=== PATIENT | male | born 1940 | race Caucasian/White ===

== ENCOUNTER 2016-11-11 19:07 | Emergency (ER) | payer MEDICARE ==
[~2016-11-11] VITALS: Ht 162.6 cm; Wt 61.4 kg
[~2016-11-11 19:07] MED LIST: ASPI325T PO; CLOP75 PO; FISH1200 PO; GLYBURIDE PO; ISOS10TA8 PO; KLORCON; LISI-660 PO; METF500T4 PO; METFORMIN PO; METO25 PO; NITR0.6T9 SL; PRAV20TA4 PO
[2016-11-11] MEDS ORDERED: METF10002 PO (19:31)
[2016-11-11] MEDS ORDERED: LISI-622 PO (19:31)
[2016-11-11] MEDS ORDERED: CLOP75TA32 PO (19:31)
[2016-11-11] MEDS ORDERED: FURO40TA5 PO (19:31)
[2016-11-11] MEDS ORDERED: SPIR25 PO (19:31)
[2016-11-11 19:32] LABS: GLUCOSE,POINT OF CARE 159 MG/DL (70-110)
[2016-11-11 21:18] VITALS: BP 110/53
== END 2016-11-11 22:13 | disposition home or self-care (01) ==
LOC: EMS 19:10
DX: S90.121A Contusion of right lesser toe(s) without damage to nail, initial encounter (principal); E11.9 Type 2 diabetes mellitus without complications; I11.9 Hypertensive heart disease without heart failure; I25.2 Old myocardial infarction; E78.00 Pure hypercholesterolemia, unspecified; I20.9 Angina pectoris, unspecified; X58.XXXA Exposure to other specified factors, initial encounter; Y93.89 Activity, other specified; Y92.89 Other specified places as the place of occurrence of the external cause; Y99.8 Other external cause status
CPT/HCPCS: 82962; 99282

== ENCOUNTER 2017-06-22 08:40 | Emergency (ER) | payer MEDICARE ==
[~2017-06-22] VITALS: Ht 162.6 cm; Wt 54.5 kg
[~2017-06-22 08:40] MED LIST changes: -ASPI325T PO; -CLOP75 PO; +CLOP75TA32 PO; -FISH1200 PO; +FURO40TA5 PO; -GLYBURIDE PO; -ISOS10TA8 PO; -KLORCON; +LISI-622 PO; -LISI-660 PO; +METF10002 PO; -METF500T4 PO; -METFORMIN PO; -METO25 PO; -NITR0.6T9 SL; -PRAV20TA4 PO; +SPIR25 PO
[2017-06-22] MEDS ORDERED: RANI150T7 PO (08:51)
[2017-06-22] MEDS ORDERED: ASPI-989 PO (08:51)
[2017-06-22] MEDS ORDERED: MAG-55 PO (08:51)
[2017-06-22] MEDS ORDERED: GLIM2 PO (08:51)
[2017-06-22] MEDS ORDERED: CIPR-278 PO (08:51)
[2017-06-22] MEDS ORDERED: PRAV20TA4 PO (08:51)
[2017-06-22] MEDS ORDERED: ISOS20TA7 PO (08:51)
[2017-06-22] MEDS ORDERED: SPIR25 PO (08:51)
[2017-06-22] MEDS ORDERED: NITR.6 SL (08:51)
[2017-06-22] MEDS ORDERED: FURO20 PO (08:51)
[2017-06-22] MEDS ORDERED: METO25 PO (08:51)
[2017-06-22 09:24] LABS: GLUCOSE,POINT OF CARE 173 MG/DL (70-110)
[2017-06-22 10:10] LABS: BASOPHILS % (AUTO) 0.3 % (0.0-2.0); EOSINOPHILS % (AUTO) 0.7 % (1.0-6.0); HEMATOCRIT 30.6 % (41-53); HEMOGLOBIN 10.3 g/dL (13.5-17.5); LYMPHOCYTES # (AUTO) 0.7 K/uL (1.0-4.8); LYMPHOCYTES % (AUTO) 9.5 % (22.0-44.0); MEAN CORPUSCULAR HEMOGLOBIN 29.4 pg (26.0-34.0); MEAN CORPUSCULAR HGB CONC 33.6 G/dL (31.0-37.0); MEAN CORPUSCULAR VOLUME 88 fL (80-100); MONOCYTES # (AUTO) 0.7 K/uL (0.1-1.0); MONOCYTES % (AUTO) 10.8 % (2.0-9.0); NEUTROPHILS # (AUTO) 5.4 K/uL (1.8-7.7); NEUTROPHILS % (AUTO) 78.7 % (40.0-70.0); PLATELET COUNT (AUTO) 225 K/uL (150-450); RED BLOOD CELL COUNT(AUTO) 3.49 MIL/uL (4.50-5.90); RED CELL DISTRIBUTION WIDTH 14.6 % (11.5-14.5); WHITE BLOOD COUNT (AUTO) 6.9 K/uL (4.5-11.0)
[2017-06-22 10:17] LABS: CALCIUM, TOTAL 8.9 mg/dL (8.8-10.5); CREATININE 2.03 mg/dL (0.60-1.30)
[2017-06-22 10:23] LABS: ALBUMIN 3.5 g/dL (3.4-5.0); BILIRUBIN,TOTAL 0.4 mg/dL (0.1-1.0)
[2017-06-22] MEDS ORDERED: ACETAMINOPHEN 325 MG TABLET PO ONE (12:15)
[2017-06-22 12:50] VITALS: BP 130/76
== END 2017-06-22 12:57 | disposition home or self-care (01) ==
LOC: EMS 08:42
DX: R10.30 Lower abdominal pain, unspecified (principal); N28.9 Disorder of kidney and ureter, unspecified; I11.0 Hypertensive heart disease with heart failure; I50.9 Heart failure, unspecified; I25.2 Old myocardial infarction; E78.00 Pure hypercholesterolemia, unspecified; I25.10 Atherosclerotic heart disease of native coronary artery without angina pectoris
CPT/HCPCS: 51702; 74176; 82962; 99285

== ENCOUNTER 2017-09-09 21:15 | Inpatient (IN) | payer MEDICARE ==
[~2017-09-09] VITALS: Ht 165.1 cm; Wt 56.1 kg
[~2017-09-09 21:15] MED LIST changes: +ASPI-989 PO; +CIPR-278 PO; +FURO20 PO; -FURO40TA5 PO; +GLIM2 PO; +ISOS20TA7 PO; +MAG-55 PO; +METO25 PO; +NITR.6 SL; +PRAV20TA4 PO; +RANI150T7 PO
[2017-09-09] MEDS ORDERED: AZIT250T9 PO (21:26)
[2017-09-09] MEDS ORDERED: FLUT16H NASAL (21:26)
[2017-09-09 21:32] LABS: GLUCOSE,POINT OF CARE 56 MG/DL (70-110)
[2017-09-09 21:59] LABS: BASOPHILS # (AUTO) 0.04 K/uL (0.00-0.20); BASOPHILS % (AUTO) 0.4 % (0.0-2.0); EOSINOPHILS # (AUTO) 0.21 K/uL (0.00-0.70); EOSINOPHILS % (AUTO) 2.26 % (1.0-6.0); HEMATOCRIT 29.5 % (41-53); HEMOGLOBIN 9.7 g/dL (13.5-17.5); LYMPHOCYTES # (AUTO) 0.8 K/uL (1.0-4.8); LYMPHOCYTES % (AUTO) 8.7 % (22.0-44.0); MEAN CORPUSCULAR HEMOGLOBIN 29.2 pg (26.0-34.0); MEAN CORPUSCULAR HGB CONC 32.7 G/dL (31.0-37.0); MEAN CORPUSCULAR VOLUME 89 fL (80-100); MONOCYTES # (AUTO) 0.5 K/uL (0.1-1.0); MONOCYTES % (AUTO) 5.6 % (2.0-9.0); NEUTROPHILS # (AUTO) 7.6 K/uL (1.8-7.7); PLATELET COUNT (AUTO) 288 K/uL (150-450); RED CELL DISTRIBUTION WIDTH 16.4 % (11.5-14.5)
[2017-09-09 22:03] LABS: GLUCOSE,POINT OF CARE 73 MG/DL (70-110)
[2017-09-09 22:14] LABS: CALCIUM, TOTAL 9.4 mg/dL (8.8-10.5); CREATININE 2.13 mg/dL (0.60-1.30); POTASSIUM 5.8 mmol/L (3.5-5.1)
[2017-09-09 22:19] LABS: ALBUMIN 3.6 g/dL (3.4-5.0); BILIRUBIN,TOTAL 0.4 mg/dL (0.1-1.0); TOTAL PROTEIN, SERUM 8.1 g/dL (6.4-8.2)
[2017-09-09 22:38] LABS: GLUCOSE,POINT OF CARE 75 MG/DL (70-110)
[2017-09-10] MEDS ORDERED: FUROSEMIDE 20 MG/2 ML VIAL IVP ONE (00:30)
[2017-09-10] MEDS ORDERED: NITROGLYCERIN 2% (1 GM=INCH) PACKET TP ONE (00:30)
[2017-09-10] MEDS ORDERED: DEXTROSE 50%-WATER 25 GM/50 ML SYRINGE IVP ONE ×2 (01:27→01:45)
[2017-09-10 01:32] LABS: GLUCOSE,POINT OF CARE 53 MG/DL (70-110)
[2017-09-10 01:37] LABS: GLUCOSE,POINT OF CARE 64 MG/DL (70-110)
[2017-09-10] MEDS ORDERED: ONDANSETRON HCL 4 MG/2 ML VIAL IVP PRN (02:00)
[2017-09-10] MEDS ORDERED: 0.9% SODIUM CHLORIDE 10 ML SYRINGE IVP PRN (02:00)
[2017-09-10] MEDS ORDERED: DEXTROSE 10%-WATER 1,000 ML IV ONE (02:00)
[2017-09-10] MEDS ORDERED: ACETAMINOPHEN 325 MG TABLET PO PRN (02:00)
[2017-09-10 03:13] LABS: GLUCOSE,POINT OF CARE 71 MG/DL (70-110)
[2017-09-10 04:08] LABS: INFLUENZA TYPE A NEGATIVE FOR TYPE A (NEGATIVE); INFLUENZA TYPE B NEGATIVE FOR TYPE B (NEGATIVE)
[2017-09-10 05:29] LABS: GLUCOSE,POINT OF CARE 96 MG/DL (70-110)
[2017-09-10 05:44] VITALS: BP 124/64
[2017-09-10 05:48] LABS: GLUCOSE,POINT OF CARE 103 MG/DL (70-110)
[2017-09-10 07:03] LABS: GLUCOSE,POINT OF CARE 102 MG/DL (70-110)
[2017-09-10 08:30] VITALS: BP 121/71
[2017-09-10 09:34] VITALS: BP 121/71
[2017-09-10 12:00] VITALS: BP 107/49
[2017-09-10 12:15] VITALS: BP 107/49
[2017-09-10] MEDS ORDERED: NITROGLYCERIN 0.6 MG SUBLINGUAL TABLET #100 SL PRN (14:15)
[2017-09-10] MEDS: ASPIRIN 325 MG TABLET PO SCH (15:58)
[2017-09-10] MEDS: ISOSORBIDE MONONITRATE 20 MG TABLET PO SCH ×2 (15:58→22:19)
[2017-09-10] MEDS: CLOPIDOGREL BISULFATE 75 MG TABLET PO SCH (15:58)
[2017-09-10] MEDS: AZITHROMYCIN 250 MG TABLET PO SCH (15:59)
[2017-09-10] MEDS: MAG HYDROX/AL HYDROX/SIMETH ES 30 ML SUSPENSION UDCUP PO SCH ×2 (16:25→23:24)
[2017-09-10 19:28] LABS: GLUCOSE,POINT OF CARE 184 MG/DL (70-110)
[2017-09-10 21:37] LABS: GLUCOSE,POINT OF CARE 159 MG/DL (70-110)
[2017-09-10] MEDS: RANITIDINE HCL 150 MG TABLET PO SCH (22:19)
[2017-09-10] MEDS: FUROSEMIDE 20 MG TABLET PO SCH (22:19)
[2017-09-10] MEDS ORDERED: NITROGLYCERIN 0.4 MG SUBLINGUAL TABLET #25 SL PRN (22:45)
[2017-09-10 23:02] VITALS: BP 106/66
[2017-09-11 05:04] VITALS: BP 111/67
[2017-09-11 06:51] LABS: BASOPHILS # (AUTO) 0.05 K/uL (0.00-0.20); BASOPHILS % (AUTO) 0.7 % (0.0-2.0); EOSINOPHILS # (AUTO) 0.55 K/uL (0.00-0.70); EOSINOPHILS % (AUTO) 8.03 % (1.0-6.0); HEMATOCRIT 28.6 % (41-53); HEMOGLOBIN 9.4 g/dL (13.5-17.5); LYMPHOCYTES # (AUTO) 0.7 K/uL (1.0-4.8); LYMPHOCYTES % (AUTO) 9.5 % (22.0-44.0); MEAN CORPUSCULAR HEMOGLOBIN 29.2 pg (26.0-34.0); MEAN CORPUSCULAR HGB CONC 32.9 G/dL (31.0-37.0); MEAN CORPUSCULAR VOLUME 89 fL (80-100); MONOCYTES # (AUTO) 0.5 K/uL (0.1-1.0); MONOCYTES % (AUTO) 7.9 % (2.0-9.0); NEUTROPHILS # (AUTO) 5.1 K/uL (1.8-7.7); NEUTROPHILS % (AUTO) 73.9 % (40.0-70.0); PLATELET COUNT (AUTO) 287 K/uL (150-450); RED BLOOD CELL COUNT(AUTO) 3.22 MIL/uL (4.50-5.90); RED CELL DISTRIBUTION WIDTH 16.5 % (11.5-14.5)
[2017-09-11 07:18] LABS: ALBUMIN 3.1 g/dL (3.4-5.0); BILIRUBIN,TOTAL 0.5 mg/dL (0.1-1.0); CALCIUM, TOTAL 9.3 mg/dL (8.8-10.5); CREATININE 1.72 mg/dL (0.60-1.30); POTASSIUM 5.3 mmol/L (3.5-5.1); TOTAL PROTEIN, SERUM 7.2 g/dL (6.4-8.2)
[2017-09-11 07:40] VITALS: BP 115/69
[2017-09-11] MEDS: CLOPIDOGREL BISULFATE 75 MG TABLET PO SCH (09:03)
[2017-09-11] MEDS: METOPROLOL TARTRATE 25 MG TABLET PO SCH (09:03)
[2017-09-11] MEDS: RANITIDINE HCL 150 MG TABLET PO SCH ×2 (09:03→21:38)
[2017-09-11] MEDS: AZITHROMYCIN 250 MG TABLET PO SCH (09:03)
[2017-09-11] MEDS: PRAVASTATIN SODIUM 20 MG TABLET PO SCH (09:03)
[2017-09-11] MEDS: ASPIRIN 325 MG TABLET PO SCH (09:03)
[2017-09-11] MEDS: FUROSEMIDE 20 MG TABLET PO SCH (09:03)
[2017-09-11] MEDS: ISOSORBIDE MONONITRATE 20 MG TABLET PO SCH ×2 (09:03→23:32)
[2017-09-11] MEDS: MAG HYDROX/AL HYDROX/SIMETH ES 30 ML SUSPENSION UDCUP PO SCH ×4 (09:04→23:30)
[2017-09-11] MEDS: GLIMEPIRIDE 2 MG TABLET PO SCH (09:04)
[2017-09-11 12:30] VITALS: BP 97/58
[2017-09-11] MEDS ORDERED: ALBUTEROL SULFATE 2.5 MG/0.5 ML NEB SOLUTION NEB PRN (14:45)
[2017-09-11] MEDS ORDERED: ACETAMINOPHEN 325 MG TABLET PO PRN (14:45)
[2017-09-11] MEDS ORDERED: IPRATROPIUM BROMIDE 0.5 MG/2.5 ML NEB SOLUTION NEB PRN (14:45)
[2017-09-11] MEDS ORDERED: ONDANSETRON HCL 4 MG/2 ML VIAL IVP PRN (14:45)
[2017-09-11] MEDS ORDERED: MAGNESIUM HYDROXIDE SUSPENSION 30 ML UDCUP PO PRN (14:45)
[2017-09-11] MEDS ORDERED: ZOLPIDEM TARTRATE 5 MG TABLET PO PRN (14:45)
[2017-09-11] MEDS ORDERED: HYDROCODONE/ACETAMINOPHEN 5-325 MG TABLET PO PRN (14:45)
[2017-09-11] MEDS ORDERED: BISACODYL 10 MG RECTAL RECTAL SUPPOSITORY PR PRN (14:45)
[2017-09-11] MEDS ORDERED: MORPHINE SULFATE 2 MG/ML SYRINGE IVP PRN (14:45)
[2017-09-11] MEDS: GuaiFENesin/CODEINE [SUGAR FREE] 200-20MG/10 ML SYRUP UDCUP PO PRN (16:06)
[2017-09-11] MEDS: HEPARIN SODIUM,PORCINE 5,000 UNITS/ML VIAL SQ SCH ×2 (16:07→23:35)
[2017-09-11 16:09] VITALS: BP 99/66
[2017-09-11 19:35] VITALS: BP 101/61
[2017-09-11 19:43] LABS: GLUCOMETER DEV NAME(LOC) 5S 2N; GLUCOSE,POINT OF CARE 204 MG/DL (70-110)
[2017-09-11 19:43] LABS: GLUCOMETER DEV NAME(LOC) 5S 2N; GLUCOSE,POINT OF CARE 170 MG/DL (70-110)
[2017-09-11] MEDS: DOCUSATE SODIUM 100 MG CAPSULE PO SCH (21:38)
[2017-09-11] MEDS: FUROSEMIDE 40 MG/4 ML VIAL IVP SCH (22:03)
[2017-09-11 23:26] VITALS: BP 121/76
[2017-09-12] MEDS: GuaiFENesin/CODEINE [SUGAR FREE] 200-20MG/10 ML SYRUP UDCUP PO PRN ×2 (01:19→08:10)
[2017-09-12 04:45] VITALS: BP 107/65
[2017-09-12 07:03] LABS: BASOPHILS # (AUTO) 0.03 K/uL (0.00-0.20); BASOPHILS % (AUTO) 0.3 % (0.0-2.0); EOSINOPHILS # (AUTO) 0.21 K/uL (0.00-0.70); EOSINOPHILS % (AUTO) 2.75 % (1.0-6.0); HEMATOCRIT 29.5 % (41-53); HEMOGLOBIN 9.8 g/dL (13.5-17.5); LYMPHOCYTES # (AUTO) 0.9 K/uL (1.0-4.8); MEAN CORPUSCULAR HEMOGLOBIN 29.5 pg (26.0-34.0); MEAN CORPUSCULAR HGB CONC 33.2 G/dL (31.0-37.0); MEAN CORPUSCULAR VOLUME 89 fL (80-100); MONOCYTES # (AUTO) 0.5 K/uL (0.1-1.0); MONOCYTES % (AUTO) 6.9 % (2.0-9.0); PLATELET COUNT (AUTO) 312 K/uL (150-450); RED BLOOD CELL COUNT(AUTO) 3.33 MIL/uL (4.50-5.90); RED CELL DISTRIBUTION WIDTH 16.4 % (11.5-14.5)
[2017-09-12 07:21] LABS: ALBUMIN 3.3 g/dL (3.4-5.0); BILIRUBIN,TOTAL 0.5 mg/dL (0.1-1.0); CALCIUM, TOTAL 9.4 mg/dL (8.8-10.5); POTASSIUM 5.6 mmol/L (3.5-5.1); TOTAL PROTEIN, SERUM 7.7 g/dL (6.4-8.2)
[2017-09-12 08:06] VITALS: BP 125/77
[2017-09-12] MEDS: FUROSEMIDE 40 MG/4 ML VIAL IVP SCH (08:10)
[2017-09-12] MEDS: ASPIRIN 325 MG TABLET PO SCH (08:10)
[2017-09-12] MEDS: HEPARIN SODIUM,PORCINE 5,000 UNITS/ML VIAL SQ SCH ×2 (08:10→16:00)
[2017-09-12] MEDS: PANTOPRAZOLE SODIUM 40 MG/VIAL IVP SCH (08:10)
[2017-09-12] MEDS: CLOPIDOGREL BISULFATE 75 MG TABLET PO SCH (08:10)
[2017-09-12] MEDS: METOPROLOL TARTRATE 25 MG TABLET PO SCH (08:11)
[2017-09-12] MEDS: DOCUSATE SODIUM 100 MG CAPSULE PO SCH ×2 (08:11→22:09)
[2017-09-12] MEDS: ISOSORBIDE MONONITRATE 20 MG TABLET PO SCH ×2 (08:12→21:00)
[2017-09-12] MEDS: AZITHROMYCIN 250 MG TABLET PO SCH (08:12)
[2017-09-12] MEDS: PRAVASTATIN SODIUM 20 MG TABLET PO SCH (08:12)
[2017-09-12] MEDS: RANITIDINE HCL 150 MG TABLET PO SCH ×2 (08:12→22:10)
[2017-09-12] MEDS: GLIMEPIRIDE 2 MG TABLET PO SCH (08:12)
[2017-09-12] MEDS: MAG HYDROX/AL HYDROX/SIMETH ES 30 ML SUSPENSION UDCUP PO SCH ×4 (08:13→22:10)
[2017-09-12 11:16] VITALS: BP 110/68
[2017-09-12 16:06] VITALS: BP 111/70
[2017-09-12] MEDS ORDERED: DEXTROSE 50%-WATER 25 GM/50 ML SYRINGE IVP PRN (16:30)
[2017-09-12] MEDS: INSULIN ASPART 100 UNITS/ML SQ PRN (18:42)
[2017-09-12 19:49] VITALS: BP 129/70
[2017-09-12 20:13] LABS: GLUCOMETER DEV NAME(LOC) 5S 2N; GLUCOSE,POINT OF CARE 349 MG/DL (70-110)
[2017-09-12 21:28] LABS: GLUCOMETER DEV NAME(LOC) 5S 1L; GLUCOSE,POINT OF CARE 312 MG/DL (70-110)
[2017-09-12 21:28] LABS: GLUCOMETER DEV NAME(LOC) 5S 1L; GLUCOSE,POINT OF CARE 177 MG/DL (70-110)
[2017-09-12] MEDS: CefTRIAXone 1 GM/DEXTROSE 50 ML IV SCH (22:10)
[2017-09-12 23:47] VITALS: BP 116/74
[2017-09-13 04:41] VITALS: BP 129/81
[2017-09-13 07:33] VITALS: BP 127/73
[2017-09-13 07:40] LABS: BASOPHILS % (AUTO) 0.5 % (0.0-2.0); EOSINOPHILS % (AUTO) 1.6 % (1.0-6.0); HEMATOCRIT 31.3 % (41-53); HEMOGLOBIN 10.5 g/dL (13.5-17.5); LYMPHOCYTES % (AUTO) 9.8 % (22.0-44.0); MEAN CORPUSCULAR HEMOGLOBIN 29.8 pg (26.0-34.0); MEAN CORPUSCULAR HGB CONC 33.6 G/dL (31.0-37.0); MEAN CORPUSCULAR VOLUME 89 fL (80-100); MONOCYTES # (AUTO) 0.7 K/uL (0.1-1.0); MONOCYTES % (AUTO) 7.1 % (2.0-9.0); NEUTROPHILS # (AUTO) 8.5 K/uL (1.8-7.7); PLATELET COUNT (AUTO) 365 K/uL (150-450); RED BLOOD CELL COUNT(AUTO) 3.53 MIL/uL (4.50-5.90); RED CELL DISTRIBUTION WIDTH 16.5 % (11.5-14.5)
[2017-09-13 07:53] LABS: ALBUMIN 3.6 g/dL (3.4-5.0); BILIRUBIN,TOTAL 0.7 mg/dL (0.1-1.0); CALCIUM, TOTAL 9.6 mg/dL (8.8-10.5); CREATININE 2.05 mg/dL (0.60-1.30); TOTAL PROTEIN, SERUM 8.1 g/dL (6.4-8.2)
[2017-09-13 08:08] LABS: POTASSIUM 6.3 mmol/L (3.5-5.1)
[2017-09-13] MEDS: MAG HYDROX/AL HYDROX/SIMETH ES 30 ML SUSPENSION UDCUP PO SCH ×4 (08:43→21:27)
[2017-09-13] MEDS: AZITHROMYCIN 250 MG TABLET PO SCH (08:44)
[2017-09-13] MEDS: PANTOPRAZOLE SODIUM 40 MG/VIAL IVP SCH (08:48)
[2017-09-13] MEDS: CLOPIDOGREL BISULFATE 75 MG TABLET PO SCH (08:48)
[2017-09-13] MEDS: METOPROLOL TARTRATE 25 MG TABLET PO SCH (08:48)
[2017-09-13] MEDS: RANITIDINE HCL 150 MG TABLET PO SCH ×2 (08:49→21:27)
[2017-09-13] MEDS: ISOSORBIDE MONONITRATE 20 MG TABLET PO SCH ×2 (08:49→21:27)
[2017-09-13] MEDS: ASPIRIN 325 MG TABLET PO SCH (08:49)
[2017-09-13] MEDS: SitaGLIPtin PHOSPHATE 50 MG TABLET PO SCH (08:49)
[2017-09-13] MEDS: GLIMEPIRIDE 2 MG TABLET PO SCH (08:50)
[2017-09-13] MEDS: HEPARIN SODIUM,PORCINE 5,000 UNITS/ML VIAL SQ SCH ×4 (08:50→23:23)
[2017-09-13] MEDS: DOCUSATE SODIUM 100 MG CAPSULE PO SCH ×2 (08:51→21:27)
[2017-09-13] MEDS: PRAVASTATIN SODIUM 20 MG TABLET PO SCH (08:51)
[2017-09-13 09:23] LABS: HEMOGLOBIN A1C 6.5 % (4.5-6.2)
[2017-09-13] MEDS ORDERED: INSULIN REGULAR, HUMAN 100 UNITS/ML IVP ONE (11:00)
[2017-09-13] MEDS ORDERED: ALBUTEROL SULFATE 5 MG/ML 20 ML NEB SOLN [BULK] NEB ONE (11:00)
[2017-09-13] MEDS ORDERED: DEXTROSE 50%-WATER 25 GM/50 ML SYRINGE IVP ONE (11:00)
[2017-09-13] MEDS ORDERED: SODIUM POLYSTYRENE SULFONATE 15 GM/60 ML SUSPENSION BOTTLE PO ONE (11:00)
[2017-09-13] MEDS ORDERED: SODIUM POLYSTYRENE SULFONATE 15 GM/60 ML SUSPENSION BOTTLE ONE (11:01)
[2017-09-13] MEDS ORDERED: ALBUTEROL SULFATE 2.5 MG/0.5 ML NEB SOLUTION NEB ONE (11:15)
[2017-09-13 11:26] VITALS: BP 136/74
[2017-09-13] MEDS ORDERED: 0.9% SODIUM CHLORIDE 5 ML NEB SOLUTION NEB ONE (11:35)
[2017-09-13] MEDS: OXYGEN THERAPY IH SCH (11:51)
[2017-09-13 15:32] VITALS: BP 111/65
[2017-09-13] MEDS: INSULIN ASPART 100 UNITS/ML SQ PRN (17:58)
[2017-09-13 19:49] VITALS: BP 116/69
[2017-09-13] MEDS: CefTRIAXone 1 GM/DEXTROSE 50 ML IV SCH (21:39)
[2017-09-14 00:23] VITALS: BP 117/67
[2017-09-14 03:38] LABS: GLUCOMETER DEV NAME(LOC) 5S 1L; GLUCOSE,POINT OF CARE 82 MG/DL (70-110)
[2017-09-14 03:39] LABS: GLUCOMETER DEV NAME(LOC) 5S 1L; GLUCOSE,POINT OF CARE 282 MG/DL (70-110)
[2017-09-14 03:39] LABS: GLUCOMETER DEV NAME(LOC) 5S 1L; GLUCOSE,POINT OF CARE 167 MG/DL (70-110)
[2017-09-14 05:06] VITALS: BP 119/75
[2017-09-14] MEDS: INSULIN ASPART 100 UNITS/ML SQ PRN ×2 (06:24→11:56)
[2017-09-14 07:32] LABS: BASOPHILS % (AUTO) 0.9 % (0.0-2.0); EOSINOPHILS % (AUTO) 4.5 % (1.0-6.0); HEMATOCRIT 31.3 % (41-53); HEMOGLOBIN 10.4 g/dL (13.5-17.5); LYMPHOCYTES # (AUTO) 0.8 K/uL (1.0-4.8); MEAN CORPUSCULAR HEMOGLOBIN 29.4 pg (26.0-34.0); MEAN CORPUSCULAR HGB CONC 33.2 G/dL (31.0-37.0); MEAN CORPUSCULAR VOLUME 88 fL (80-100); MONOCYTES # (AUTO) 0.5 K/uL (0.1-1.0); MONOCYTES % (AUTO) 5.5 % (2.0-9.0); NEUTROPHILS # (AUTO) 6.5 K/uL (1.8-7.7); NEUTROPHILS % (AUTO) 79.1 % (40.0-70.0); PLATELET COUNT (AUTO) 336 K/uL (150-450); RED BLOOD CELL COUNT(AUTO) 3.53 MIL/uL (4.50-5.90); RED CELL DISTRIBUTION WIDTH 16.9 % (11.5-14.5)
[2017-09-14 07:40] LABS: ALBUMIN 3.3 g/dL (3.4-5.0); BILIRUBIN,TOTAL 0.6 mg/dL (0.1-1.0); CALCIUM, TOTAL 8.8 mg/dL (8.8-10.5); CREATININE 2.02 mg/dL (0.60-1.30); POTASSIUM 4.5 mmol/L (3.5-5.1); TOTAL PROTEIN, SERUM 7.7 g/dL (6.4-8.2)
[2017-09-14 07:44] VITALS: BP 122/69
[2017-09-14 07:52] LABS: CREATININE,URINE RANDOM 69.2 mg/dL (30.0-125.0); PROTEIN,URINE RANDOM 38 mg/dL (0-11.9); SODIUM,URINE RANDOM 25 mmol/l (20-110); UREA NITROGEN,URINE RANDOM 1135 mg/dL (350-1000)
[2017-09-14] MEDS: OXYGEN THERAPY IH SCH (08:00)
[2017-09-14 08:03] LABS: APPEARANCE,URINE CLEAR (CLEAR); BILIRUBIN,URINE NEGATIVE (NEGATIVE); GLUCOSE, URINE (UA) NEGATIVE (NEGATIVE); KETONES,URINE NEGATIVE (NEGATIVE); LEUKOCYTE ESTERASE ,URINE NEGATIVE (NEGATIVE); NITRATE,URINE NEGATIVE (NEGATIVE); OCCULT BLOOD,URINE NEGATIVE (NEGATIVE); PH,URINE 6.5 (5.0-8.0); PROTEIN,URINE TRACE (NEGATIVE); UROBILINOGEN,URINE 0.2 mg/dL (<=1.0)
[2017-09-14] MEDS: DOCUSATE SODIUM 100 MG CAPSULE PO SCH (09:10)
[2017-09-14] MEDS: CLOPIDOGREL BISULFATE 75 MG TABLET PO SCH (09:10)
[2017-09-14] MEDS: ASPIRIN 325 MG TABLET PO SCH (09:10)
[2017-09-14] MEDS: ISOSORBIDE MONONITRATE 20 MG TABLET PO SCH (09:10)
[2017-09-14] MEDS: MAG HYDROX/AL HYDROX/SIMETH ES 30 ML SUSPENSION UDCUP PO SCH ×3 (09:10→16:00)
[2017-09-14] MEDS: SitaGLIPtin PHOSPHATE 50 MG TABLET PO SCH (09:10)
[2017-09-14] MEDS: AZITHROMYCIN 250 MG TABLET PO SCH (09:11)
[2017-09-14] MEDS: PANTOPRAZOLE SODIUM 40 MG/VIAL IVP SCH (09:11)
[2017-09-14] MEDS: GLIMEPIRIDE 2 MG TABLET PO SCH (09:11)
[2017-09-14] MEDS: RANITIDINE HCL 150 MG TABLET PO SCH (09:11)
[2017-09-14] MEDS: PRAVASTATIN SODIUM 20 MG TABLET PO SCH (09:11)
[2017-09-14] MEDS: HEPARIN SODIUM,PORCINE 5,000 UNITS/ML VIAL SQ SCH ×2 (09:11→16:00)
[2017-09-14 11:31] VITALS: BP 110/72
[2017-09-14 15:40] VITALS: BP 104/62
[2017-09-14 16:38] LABS: GLUCOMETER DEV NAME(LOC) 5S 2N; GLUCOSE,POINT OF CARE 127 MG/DL (70-110)
[2017-09-14 16:38] LABS: GLUCOMETER DEV NAME(LOC) 5S 2N; GLUCOSE,POINT OF CARE 260 MG/DL (70-110)
[2017-09-14 16:38] LABS: GLUCOMETER DEV NAME(LOC) 5S 2N; GLUCOSE,POINT OF CARE 65 MG/DL (70-110)
[2017-09-14 16:38] LABS: GLUCOMETER DEV NAME(LOC) 5S 2N; GLUCOSE,POINT OF CARE 277 MG/DL (70-110)
[2017-09-14 16:38] LABS: GLUCOMETER DEV NAME(LOC) 5S 2N; GLUCOSE,POINT OF CARE 315 MG/DL (70-110)
[2017-09-14] MEDS ORDERED: LEVO750P3 IV (16:40)
[2017-09-15 19:23] LABS: GLUCOMETER DEV NAME(LOC) 5S 2N; GLUCOSE,POINT OF CARE 58 MG/DL (70-110)
== END 2017-09-14 18:40 | disposition home or self-care (01) | DRG 291 ==
LOC: EMS 21:18 → AHU 09-10 05:00 → 5S 09-10 22:30
PROVIDERS: ADMIT Hospitalist; ATTEND Hospitalist
DX: I13.0 Hypertensive heart and chronic kidney disease with heart failure and stage 1 through stage 4 chronic kidney disease, or unspecified chronic kidney disease (principal); I50.23 Acute on chronic systolic (congestive) heart failure; E11.22 Type 2 diabetes mellitus with diabetic chronic kidney disease; E11.649 Type 2 diabetes mellitus with hypoglycemia without coma; E87.5 Hyperkalemia; E78.5 Hyperlipidemia, unspecified; N18.3 Chronic kidney disease, stage 3 (moderate); I25.5 Ischemic cardiomyopathy; M19.90 Unspecified osteoarthritis, unspecified site; I25.10 Atherosclerotic heart disease of native coronary artery without angina pectoris; I25.2 Old myocardial infarction; H18.419 Arcus senilis, unspecified eye; Z95.0 Presence of cardiac pacemaker; Z79.51 Long term (current) use of inhaled steroids; Z79.2 Long term (current) use of antibiotics; Z79.84 Long term (current) use of oral hypoglycemic drugs; Z79.02 Long term (current) use of antithrombotics/antiplatelets; Z79.82 Long term (current) use of aspirin; Z79.899 Other long term (current) drug therapy; Z82.49 Family history of ischemic heart disease and other diseases of the circulatory system; Z83.3 Family history of diabetes mellitus
CPT/HCPCS: 76770; 80074; 82570; 82962; 83036; 84156; 84300; 84540; 87804; 93005; 93306; 94640; 96361; 96374; 96375; 99291; C9113; J0696; J1644; J1815; J1940

== ENCOUNTER → 2018-05-11 | Outpatient (CLI) | payer MEDICARE ==
[~2018-05-11] VITALS: Ht 162.6 cm; Wt 52.5 kg
[~2018-05-11] MED LIST changes: -ASPI-989 PO; +ASPI81 PO; +BUME1TAB17 PO; -CIPR-278 PO; -FURO20 PO; -LISI-622 PO; -MAG-55 PO; -METF10002 PO; -METO25 PO; +METO25XL PO; -RANI150T7 PO
[2018-05-11 15:40] VITALS: BP 103/56
== END | disposition home or self-care (01) ==
LOC: SRCNTR 15:38
PROVIDERS: ATTEND Internal Medicine Cardiovascular Disease
DX: I25.10 Atherosclerotic heart disease of native coronary artery without angina pectoris (principal); I25.5 Ischemic cardiomyopathy; I11.0 Hypertensive heart disease with heart failure; I50.9 Heart failure, unspecified; E78.5 Hyperlipidemia, unspecified; E11.9 Type 2 diabetes mellitus without complications; Z95.1 Presence of aortocoronary bypass graft
CPT/HCPCS: 93005; G0463

== ENCOUNTER → 2018-06-22 | Outpatient (CLI) | payer MEDICARE ==
[~2018-06-22] VITALS: Ht 162.6 cm; Wt 58.8 kg
[2018-06-22 15:14] VITALS: BP 124/68
== END | disposition home or self-care (01) ==
LOC: SRCNTR 14:49
PROVIDERS: ATTEND Internal Medicine Cardiovascular Disease
DX: I11.0 Hypertensive heart disease with heart failure (principal); I50.9 Heart failure, unspecified; I25.5 Ischemic cardiomyopathy; E11.9 Type 2 diabetes mellitus without complications; E78.5 Hyperlipidemia, unspecified; J44.9 Chronic obstructive pulmonary disease, unspecified; I25.10 Atherosclerotic heart disease of native coronary artery without angina pectoris; Z95.1 Presence of aortocoronary bypass graft
CPT/HCPCS: G0463

== ENCOUNTER → 2018-06-30 | Outpatient (CLI) | payer MEDICARE ==
[~2018-06-30] VITALS: Ht 162.6 cm; Wt 52.5 kg
[2018-06-30 12:34] VITALS: BP 104/55
== END | disposition home or self-care (01) ==
LOC: SRCNTR 11:34
PROVIDERS: ATTEND Internal Medicine Cardiovascular Disease
DX: I11.0 Hypertensive heart disease with heart failure (principal); I50.9 Heart failure, unspecified; I42.9 Cardiomyopathy, unspecified; I25.10 Atherosclerotic heart disease of native coronary artery without angina pectoris; E78.5 Hyperlipidemia, unspecified; E11.9 Type 2 diabetes mellitus without complications; Z95.1 Presence of aortocoronary bypass graft
CPT/HCPCS: G0463

== ENCOUNTER 2018-12-20 17:22 | Inpatient (IN) | payer MEDICARE ==
[~2018-12-20] VITALS: Ht 167.6 cm; Wt 50.9 kg
[2018-12-20 17:44] LABS: GLUCOSE,POINT OF CARE 321 MG/DL (70-110)
[2018-12-20 18:13] LABS: BASOPHILS % (AUTO) 1.3 % (0.0-2.0); EOSINOPHILS % (AUTO) 0.3 % (1.0-6.0); HEMATOCRIT 39.1 % (41-53); HEMOGLOBIN 12.6 g/dL (13.5-17.5); LYMPHOCYTES # (AUTO) 0.6 K/uL (1.0-4.8); LYMPHOCYTES % (AUTO) 11.4 % (22.0-44.0); MEAN CORPUSCULAR HGB CONC 32.3 G/dL (31.0-37.0); MEAN CORPUSCULAR VOLUME 84 fL (80-100); MONOCYTES # (AUTO) 0.8 K/uL (0.1-1.0); MONOCYTES % (AUTO) 15.2 % (2.0-9.0); NEUTROPHILS # (AUTO) 3.6 K/uL (1.8-7.7); NEUTROPHILS % (AUTO) 71.8 % (40.0-70.0); PLATELET COUNT (AUTO) 235 K/uL (150-450); RED BLOOD CELL COUNT(AUTO) 4.68 MIL/uL (4.50-5.90); RED CELL DISTRIBUTION WIDTH 16.4 % (11.5-14.5)
[2018-12-20 18:36] LABS: ANION GAP 7 mmol/L (8-16); CALCIUM, TOTAL 9.7 mg/dL (8.8-10.5); CARBON DIOXIDE 31 mmol/L (22-29); CHLORIDE 91 mmol/L (98-107); CREATININE 1.93 mg/dL (0.60-1.30); GLOMERULAR FILTR. RATE CALC 34 mL/min (>60); GLUCOSE,RANDOM 323 mg/dL (70-110); SODIUM SERUM 129 mmol/L (136-145); UREA NITROGEN, BLOOD 44 mg/dL (7-18)
[2018-12-20 18:43] LABS: ALANINE AMINOTRANSFERASE 25 U/L (12-78); ALBUMIN 3.6 g/dL (3.4-5.0); ALKALINE PHOSPHATASE 109 U/L (46-116); ASPARTATE AMINOTRANSFERASE 29 U/L (15-37); BILIRUBIN,TOTAL 0.7 mg/dL (0.1-1.0); TOTAL PROTEIN, SERUM 9.3 g/dL (6.4-8.2)
[2018-12-20 18:50] LABS: B-TYPE NATRIURETIC PEPTIDE > 5000 pg/mL (0-100)
[2018-12-20] MEDS ORDERED: NITROGLYCERIN 2% (1 GM=INCH) PACKET TP ONE (19:30)
[2018-12-20] MEDS ORDERED: FUROSEMIDE 40 MG/4 ML VIAL IVP ONE (19:30)
[2018-12-20] MEDS ORDERED: ALBUTEROL SULFATE 2.5 MG/0.5 ML NEB SOLUTION NEB ONE (20:15)
[2018-12-20] MEDS ORDERED: IPRATROPIUM BROMIDE 0.5 MG/2.5 ML NEB SOLUTION NEB ONE (20:15)
[2018-12-20] MEDS ORDERED: CefTRIAXone 1 GM/DEXTROSE 50 ML IV ONE (20:15)
[2018-12-20] MEDS ORDERED: AZITHROMYCIN 500 MG/NS 250 ML IV ONE (20:15)
[2018-12-20] MEDS ORDERED: BISACODYL 10 MG RECTAL RECTAL SUPPOSITORY PR PRN (20:30)
[2018-12-20] MEDS ORDERED: OxyCODONE HCL/ACETAMINOPHEN 5-325 MG TABLET PO PRN (20:30)
[2018-12-20] MEDS ORDERED: ALBUTEROL SULFATE 2.5 MG/0.5 ML NEB SOLUTION NEB PRN (20:30)
[2018-12-20] MEDS ORDERED: DEXTROSE 50%-WATER 25 GM/50 ML SYRINGE IVP PRN (20:30)
[2018-12-20] MEDS ORDERED: ACETAMINOPHEN 325 MG TABLET PO PRN (20:30)
[2018-12-20 22:38] LABS: APPEARANCE,URINE CLEAR (CLEAR); BILIRUBIN,URINE NEGATIVE (NEGATIVE); GLUCOSE, URINE (UA) 100 mg/dL (NEGATIVE); KETONES,URINE NEGATIVE (NEGATIVE); LEUKOCYTE ESTERASE ,URINE NEGATIVE (NEGATIVE); NITRATE,URINE NEGATIVE (NEGATIVE); OCCULT BLOOD,URINE NEGATIVE (NEGATIVE); PH,URINE 5.5 (5.0-8.0); PROTEIN,URINE TRACE (NEGATIVE)
[2018-12-20 22:46] LABS: BACTERIA,URINE None Seen /HPF (None Seen); RBC,URINE 0-2 /HPF (0-2); SQUAMOUS EPITHELIAL CELL,UR Rare /LPF (None Seen); WBC,URINE 0-2 /HPF (0-5)
[2018-12-20 23:00] VITALS: BP 102/62
[2018-12-20] MEDS: DOCUSATE SODIUM 100 MG CAPSULE PO SCH (23:06)
[2018-12-20] MEDS: HEPARIN SODIUM,PORCINE 5,000 UNITS/ML VIAL SQ SCH (23:06)
[2018-12-20] MEDS: INSULIN LISPRO 100 UNITS/ML SQ PRN (23:09)
[2018-12-20 23:37] LABS: GLUCOMETER DEV NAME(LOC) 5S.2; GLUCOSE,POINT OF CARE 303 MG/DL (70-110)
[2018-12-21 04:30] VITALS: BP 109/70
[2018-12-21 06:05] LABS: CALCIUM, TOTAL 9.1 mg/dL (8.8-10.5); CREATININE 1.93 mg/dL (0.60-1.30); POTASSIUM 4.1 mmol/L (3.5-5.1)
[2018-12-21] MEDS: GlipiZIDE 5 MG TABLET PO SCH (06:22)
[2018-12-21 06:36] LABS: GLUCOMETER DEV NAME(LOC) 5S.2; GLUCOSE,POINT OF CARE 97 MG/DL (70-110)
[2018-12-21] MEDS ORDERED: BUMETANIDE 0.25 MG/ML 4 ML VIAL IVP SCH (08:00)
[2018-12-21 08:06] VITALS: BP 111/72
[2018-12-21] MEDS: BUMETANIDE 0.25 MG/ML 4 ML VIAL IVP SCH ×2 (08:15→20:02)
[2018-12-21] MEDS: CLOPIDOGREL BISULFATE 75 MG TABLET PO SCH (08:15)
[2018-12-21] MEDS: DOCUSATE SODIUM 100 MG CAPSULE PO SCH ×2 (08:15→20:02)
[2018-12-21] MEDS: METOPROLOL SUCCINATE 25 MG ER TABLET PO SCH (08:15)
[2018-12-21] MEDS: ASPIRIN 81 MG CHEWABLE TABLET PO SCH (08:15)
[2018-12-21] MEDS: FAMOTIDINE 20 MG TABLET PO SCH (08:15)
[2018-12-21] MEDS: HEPARIN SODIUM,PORCINE 5,000 UNITS/ML VIAL SQ SCH ×2 (08:15→20:02)
[2018-12-21 11:34] VITALS: BP 110/71
[2018-12-21 16:00] VITALS: BP 104/61
[2018-12-21] MEDS ORDERED: 0.9% SODIUM CHLORIDE 5 ML NEB SOLUTION NEB ONE (16:20)
[2018-12-21] MEDS: INSULIN LISPRO 100 UNITS/ML SQ PRN ×2 (17:52→20:07)
[2018-12-21 19:30] VITALS: BP 137/55
[2018-12-21] MEDS: IPRATROPIUM BROMIDE 0.5 MG/2.5 ML NEB SOLUTION NEB SCH ×2 (19:42→22:48)
[2018-12-21] MEDS: ALBUTEROL SULFATE 2.5 MG/0.5 ML NEB SOLUTION NEB SCH ×2 (19:42→22:47)
[2018-12-21] MEDS: GuaiFENesin SR 600 MG ER TABLET PO SCH (20:02)
[2018-12-21 23:45] VITALS: BP 113/78
[2018-12-22] MEDS: ALBUTEROL SULFATE 2.5 MG/0.5 ML NEB SOLUTION NEB SCH ×4 (02:49→15:23)
[2018-12-22] MEDS: IPRATROPIUM BROMIDE 0.5 MG/2.5 ML NEB SOLUTION NEB SCH ×4 (02:49→15:23)
[2018-12-22 04:22] VITALS: BP 124/65
[2018-12-22 05:05] LABS: GLUCOMETER DEV NAME(LOC) 5N.1; GLUCOSE,POINT OF CARE 140 MG/DL (70-110)
[2018-12-22 05:09] LABS: GLUCOMETER DEV NAME(LOC) 5S.2; GLUCOSE,POINT OF CARE 193 MG/DL (70-110)
[2018-12-22 05:09] LABS: GLUCOMETER DEV NAME(LOC) 5S.2; GLUCOSE,POINT OF CARE 166 MG/DL (70-110)
[2018-12-22 06:05] LABS: GLUCOMETER DEV NAME(LOC) 5S.1; GLUCOSE,POINT OF CARE 203 MG/DL (70-110)
[2018-12-22 06:05] LABS: GLUCOMETER DEV NAME(LOC) 5S.1; GLUCOSE,POINT OF CARE 56 MG/DL (70-110)
[2018-12-22] MEDS: GlipiZIDE 5 MG TABLET PO SCH (06:06)
[2018-12-22 07:30] VITALS: BP 126/63
[2018-12-22] MEDS: BUMETANIDE 0.25 MG/ML 4 ML VIAL IVP SCH (08:47)
[2018-12-22 08:48] LABS: GLUCOMETER DEV NAME(LOC) 5N.1; GLUCOSE,POINT OF CARE 130 MG/DL (70-110)
[2018-12-22] MEDS: HEPARIN SODIUM,PORCINE 5,000 UNITS/ML VIAL SQ SCH (08:48)
[2018-12-22] MEDS: FAMOTIDINE 20 MG TABLET PO SCH (08:48)
[2018-12-22] MEDS: DOCUSATE SODIUM 100 MG CAPSULE PO SCH (08:48)
[2018-12-22] MEDS: ASPIRIN 81 MG CHEWABLE TABLET PO SCH (08:48)
[2018-12-22] MEDS: METOPROLOL SUCCINATE 25 MG ER TABLET PO SCH (08:48)
[2018-12-22] MEDS: GuaiFENesin SR 600 MG ER TABLET PO SCH (08:48)
[2018-12-22] MEDS: CLOPIDOGREL BISULFATE 75 MG TABLET PO SCH (08:48)
[2018-12-22 11:25] VITALS: BP 121/58
[2018-12-22] MEDS: INSULIN LISPRO 100 UNITS/ML SQ PRN ×2 (11:46→17:44)
[2018-12-22 12:54] LABS: GLUCOMETER DEV NAME(LOC) 5S.2; GLUCOSE,POINT OF CARE 239 MG/DL (70-110)
[2018-12-22 15:10] VITALS: BP 114/63
[2018-12-22] MEDS ORDERED: BUMETANIDE 1 MG TABLET PO SCH (21:00)
[2018-12-23 00:59] LABS: GLUCOMETER DEV NAME(LOC) 5S.2; GLUCOSE,POINT OF CARE 154 MG/DL (70-110)
== END 2018-12-22 18:40 | disposition home or self-care (01) | DRG 291 ==
LOC: EMS 17:23 → 5S 20:27
PROVIDERS: ADMIT Internal Medicine; ATTEND Internal Medicine
DX: I13.0 Hypertensive heart and chronic kidney disease with heart failure and stage 1 through stage 4 chronic kidney disease, or unspecified chronic kidney disease (principal); E43 Unspecified severe protein-calorie malnutrition; I50.43 Acute on chronic combined systolic (congestive) and diastolic (congestive) heart failure; N17.9 Acute kidney failure, unspecified; Z68.1 Body mass index [BMI] 19.9 or less, adult; R64 Cachexia; N18.4 Chronic kidney disease, stage 4 (severe); J44.1 Chronic obstructive pulmonary disease with (acute) exacerbation; J44.0 Chronic obstructive pulmonary disease with (acute) lower respiratory infection; E11.65 Type 2 diabetes mellitus with hyperglycemia; I25.5 Ischemic cardiomyopathy; I25.10 Atherosclerotic heart disease of native coronary artery without angina pectoris; E78.00 Pure hypercholesterolemia, unspecified; I07.1 Rheumatic tricuspid insufficiency; E11.22 Type 2 diabetes mellitus with diabetic chronic kidney disease; E78.5 Hyperlipidemia, unspecified; Z91.19 Patient's noncompliance with other medical treatment and regimen; Z83.3 Family history of diabetes mellitus; Z82.49 Family history of ischemic heart disease and other diseases of the circulatory system; Z95.810 Presence of automatic (implantable) cardiac defibrillator; Z95.1 Presence of aortocoronary bypass graft
CPT/HCPCS: 87040; 93005; 93306; 94060; 94640; 96365; G0378; J0456; J0696; J1644; J1940; J3490